=== PATIENT | male | born 1970 | race Caucasian/White ===

== ENCOUNTER 2021-10-07 12:49 | Emergency (ER) | payer OTHER, SELFPAY ==
--- NOTE | ~2021-10-07 | CT_ITS ---
EXAMINATION: CT CERVICAL SPINE WITHOUT CONTRAST CLINICAL INFORMATION: Neck pain after trauma 3 days ago. COMPARISON: No similar priors. TECHNIQUE: Axial, coronal and sagittal images of the cervical spine were obtained without intravenous contrast. This CT examination was performed using dose optimization techniques as appropriate, variously including the following: *Automated exposure control *Adjustment of mA and/or kV according to patient size (this includes techniques or standardized protocols for targeted exams where dose is matched to indication/reason for exam; i.e. extremities or head) *Use of iterative reconstruction technique DLP: 509 mGy-cm FINDINGS: The atlantooccipital and atlantoaxial articulations remain well aligned. Straightening of the normal cervical lordosis. Otherwise, there is anatomic alignment of the vertebral bodies and posterior elements. No evidence of acute fracture or subluxation. There is mild to moderate cervical spondylosis with disc space narrowing, osteophytes and uncovertebral hypertrophy, more apparent from C4 through C7 leading to varying degrees of central canal narrowing and neural foraminal encroachment. There is no prevertebral soft tissue swelling. The thyroid gland and remaining cervical soft tissues are normal in appearance. The lung apices demonstrate no abnormalities. CT/CT cervical spine wo con IMPRESSION: No acute cervical spinal fractures or malalignment. Mild to moderate cervical spondylosis leading to varying degrees of canal narrowing and neural foraminal encroachment, which could be better assessed with a nonemergent MR of the cervical spine if clinically indicated.
--- NOTE | ~2021-10-07 | XR_ITS ---
EXAMINATION: XR THORACIC SPINE CLINICAL INFORMATION: Pain COMPARISON: None TECHNIQUE: 3 views of the thoracic spine were obtained. FINDINGS: Narrowing of intervertebral disc spaces suggest underlying degenerative disc disease. There is no fracture or bone destruction seen and the vertebral alignment is normal. There is no disc space narrowing. There is no abnormality of the paraspinal soft tissues. XR/XR thoracic spine 3V IMPRESSION: Narrowing of intervertebral disc spaces suggest underlying degenerative disc disease. No fracture
[2021-10-07 13:25] VITALS: BP 127/67; PULSE 77; RESP 18; TEMP 36.8; O2SAT 98; BMI 33.0
--- NOTE | 2021-10-07 18:01 | ED.NECK ---
HPI - Neck Pain/Injury General Chief Complaint: Neck Pain/Injury Stated Complaint: Neck inj Time Seen by Provider: 10/07/21 17:17 Source: patient Mode of arrival: ambulatory Limitations: no limitations History of Present Illness HPI Narrative: 50-year-old male presents to ED for neck pain. Patient states 2 days ago while going down the stairs he lost his footing and slipped and caught himself by landing on his feet and then immediately started having neck pain. Patient states when he landed on his feet his he did an awkward movement/whiplash to his neck. Patient states immediately started having posterior neck and upper back pain. Patient denies heads neck or body falling to the ground. MD complaint: neck pain Related Data Previous Rx's Medication Instructions Recorded cyclobenzaprine 10 mg tablet 10 mg PO TID PRN 7 Days #21 tab 10/07/21 ketorolac 10 mg tablet 10 mg PO QID PRN 5 Days #20 tab 10/07/21 prednisone 20 mg tablet 60 mg PO DAILY 5 Days #15 tab 10/07/21 Allergies Allergy/AdvReac Type Severity Reaction Status Date / Time No Known Allergies Allergy Unverified 07/11/20 16:31 [No Known Allergies*] Review of Systems Review of Systems: Yes all other systems are reviewed and are negative Constitutional: Constitutional: Reports as per HPI and Reports no additional constitutional complaints Eyes: Eyes: Reports as per HPI and Reports no additional eye complaints ENT: Reports system reviewed and no additional complaints, except as documented, Reports as per HPI and Reports neck pain Cardiovascular: Cardiovascular: Reports as per HPI and Reports no additional cardiovascular complaints Respiratory: Respiratory: Reports as per HPI and Reports no additional respiratory complaints Gastrointestinal: Gastrointestinal: Reports as per HPI and Reports no additional gastrointestinal complaints Genitourinary: Genitourinary: Reports no additional male genitourinary complaints and Reports as per HPI Musculoskeletal: Musculoskeletal: Reports no additional musculoskeletal complaints, Reports as per HPI, Reports back pain (Thoracic back pain) and Reports neck pain Integumentary/Breasts: Skin/Breast: Reports system reviewed and no additional complaints, except as docu and Reports as per HPI Neurologic: Reports system reviewed and no additional complaints, except as documented and Reports as per HPI Psychiatric: Psychiatric: Reports no additional psychiatric complaints and Reports as per HPI [facility] Social History Social History Advance Directives: No Advance Directives Information Provided: Yes Physical Exam Vital Signs: Vital Signs: Last Vital Signs Temp 98.2 F 10/07/21 13:25 Pulse 77 10/07/21 13:25 Resp 18 10/07/21 13:25 BP 127/67 10/07/21 13:25 Pulse Ox 98 10/07/21 13:25 BMI result Body Mass Index 33.0 Const: General: cooperative, healthy appearing, comfortable, no acute distress, well developed, alert, awake and Physically active Orientation/consciousness: patient oriented x3 HENMT: Head: Yes normal to inspection, Yes No palpable skull fracture present, Yes normocephalic and Yes atraumatic Eyes: General: appearance normal, both eyes and all related structures Neck: Neck: Yes normal visual inspection, Yes full ROM, Yes no lymphadenopathy, Yes no meningeal signs, Yes trachea midline, Yes supple, No anterior neck swelling and Yes tender (Posterior neck pain) Chest: Chest palpation & inspection: normal inspection of the chest and normal palpation of entire chest wall Resp: Effort & Inspection: normal respiratory effort and able to speak in complete sentences Auscultation: clear to auscultation bilaterally Cardio: Jugular venous distension: no JVD Heart sounds: S1 normal heart sound present and S2 normal heart sound present GI: Inspection: Yes normal to inspection and No abdominal wall ecchymosis Palpation (GI): Soft to palpation, not firm, nontender, no guarding and not rigid : General: No CVA tenderness and Yes no CVA tenderness Back/Spine/Pelvis: Back: no CVA tenderness, No CVA tenderness and back tenderness (Thoracic) Skin: General skin exam: no rashes or lesions noted and elasticity normal Neuro: General: patient oriented x3, gait normal, no meningeal signs and CN's II-XI intact bilaterally Cranial nerves: Yes CN's II-XII intact bilaterally Extrem: General: Yes normal to inspection and Yes full ROM Psych: Appearance: grossly normal, well kempt and not disheveled Course Course Course Narrative: Patient's cervical tenderness of the spine times per Toradol prednisone ordered. Patient is sent for CT scan to rule out cervical fracture. Patient denies any history of HIV hepatitis-C or any immunocompromised disease. Patient denies any IV drug use. Not suspect epidural abscess Reevaluation(s) Reevaluation #1: CT scan shows cervical arthritis and thoracic spine arthritis. Patient will be discharged with pain meds, muscle relaxers steroids. Time: 19:09 MDM - Neck Pain/Injury MDM Narrative Medical decision making narrative: Cervical radiculopathy. Thoracic arthritis Discharge Plan Discharge Clinical Impression: Cervical radiculopathy, Degenerative arthritis of thoracic spine Patient Disposition: Home, Self-Care Instructions: Osteoarthritis (ED), Cervical Radiculopathy (ED) Additional Instructions: Your CT scan of neck and thoracic spine x-ray shows you have arthritis. He will be discharged with pain medication and steroids. Do need to follow-up with primary care provider for referral to physical therapy and MRI if indicated. Return to ED for worsening neck pain, fever, chills, nausea, vomiting, numbness/tingling/paralysis of upper extremity, fever, abdominal pain, dysuria, hematuria, flank pain, urinary/bowel incontinence, or any other concerning symptoms. Please follow-up with primary care provider. Prescriptions: New ketorolac 10 mg tablet 10 mg PO QID PRN (Reason: pain) 5 Days Qty: 20 RF: 0 prednisone 20 mg tablet 60 mg PO DAILY 5 Days Qty: 15 RF: 0 cyclobenzaprine 10 mg tablet 10 mg PO TID PRN (Reason: muscle spasm) 7 Days Qty: 21 RF: 0 Stand Alone Forms: Work/School Release Print Language: Lithuanian
[2021-10-07] MEDS: Ketorolac Tromethamine 30 MG/ML VIAL 15 MG IM (18:30)
[2021-10-07] MEDS: predniSONE 20 MG TABLET 60 MG PO (18:30)
== END 2021-10-07 19:34 | disposition home or self-care (01) ==
PROVIDERS: Emergency Provider Emergency Medicine; PCP Nurse Practitioner Family
DX: M54.12 Radiculopathy, cervical region (principal); M51.34 Other intervertebral disc degeneration, thoracic region; M54.2 Cervicalgia
CPT/HCPCS: 72072; 72125; 96372; 99284; J1885